=== PATIENT | male | born 2000 | race Caucasian/White ===

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

== ENCOUNTER → 2019-01-14 11:57 | Outpatient (CLI) | payer BC | END | disposition home or self-care (01) | LOC: D.ECHO 01-13 12:00 | DX: R00.0 Tachycardia, unspecified (principal) ==